=== PATIENT | male | born 1950 | race Caucasian/White ===

== ENCOUNTER 2017-06-26 16:01 | Emergency (ER) | payer OTHER, BC ==
[~2017-06-26] VITALS: Ht 170.2 cm; Wt 77.6 kg
[~2017-06-26 16:01] MED LIST: Adderall 20 MG20 MG PO; CEPH500 PO; CYCL10 PO; Clonazepam0.5 MG PO; DOXY100 PO; GLUCOSE; HYDACE5 PO; IBUHYD PO; LEVO750 PO; METR500 PO; NAPR500 PO; ONDA4ODT MM; OSEL75CA PO; OXYACE5T PO; PROM25 PO; TRAM50 PO; ZOLP10 PO; ZOLP5 PO; [UNRECOGNIZED DRUG - OTHER]
[2017-06-26] MEDS ORDERED: Roxicodone5 MG PO (17:11)
== END 2017-06-26 17:26 | disposition home or self-care (01) ==
LOC: ER 16:01
DX: S92.354A Nondisplaced fracture of fifth metatarsal bone, right foot, initial encounter for closed fracture (principal); Z88.0 Allergy status to penicillin; Z88.1 Allergy status to other antibiotic agents; Z79.899 Other long term (current) drug therapy; W23.0XXA Caught, crushed, jammed, or pinched between moving objects, initial encounter
CPT/HCPCS: 29515; 73630; 99283

== ENCOUNTER 2020-03-01 10:31 | Day surgery (SDC) | payer OTHER, BC ==
[~2020-03-01] VITALS: Ht 170.2 cm; Wt 78.0 kg
[~2020-03-01 10:31] MED LIST changes: +Roxicodone5 MG PO; +VICOPROFEN PO
--- NOTE | 2020-03-01 11:11 | NUR ---
03/01/20 1110 Donna Mendez CHARTED BY GABY BURCIAGA RN
== END 2020-03-01 13:25 | disposition home or self-care (01) ==
LOC: ORSCSDS 10:31
PROVIDERS: Orthopaedic Surgery
PROC: 01N50ZZ Release Median Nerve, Open Approach (ICD-10-PCS; principal; 2020-03-01 12:00)
DX: G56.02 Carpal tunnel syndrome, left upper limb (principal); I10 Essential (primary) hypertension
CPT/HCPCS: J2250; J2704; J3010; J3370; J7120

== ENCOUNTER 2021-11-16 08:34 | Day surgery (SDC) | payer OTHER, BC ==
[~2021-11-16] VITALS: Ht 170.2 cm; Wt 73.8 kg
[~2021-11-16 08:34] MED LIST changes: +AMPDEX15CR PO; +Acerola C500 MG PO; +GLUCHON PO; +TIZANIDINE HCL2 MG PO; +VITAMIN E400 UNIT PO; +Vitamin B Comple1 EA PO
--- NOTE | 2021-11-16 19:08 | NUR ---
SHIFT SUMMARY HAS DONE WELL POST OP. WAS NOT ABLE TO WORK w/ THERAPY DUE TO TIMING OF ARRIVAL TO UNIT. PAINFUL INITIALLY, BUT MUCH IMPROVED. EATING, DRINKING, & VOIDING. JOHN WRAP WNL. VSS.
[2021-11-17 05:35] LABS: BASOPHILS ABSOLUTE AUTO 0.03 K/mm3 (0.00-0.23); BASOPHILS PERCENT AUTO 0 % (0-2); EOSINOPHILS ABSOLUTE AUTO 0.02 K/mm3 (0.00-0.68); EOSINOPHILS PERCENT AUTO 0 % (0-6); Hemoglobin 10.7 g/dL (13.5-17.5); IMMATURE GRAN ABSOLUTE AUTO 0.04 K/mm3 (0.00-0.10); IMMATURE GRAN PERCENT AUTO 0 % (0-1); LYMPHOCYTES ABSOLUTE AUTO 1.22 K/mm3 (0.84-5.20); LYMPHOCYTES PERCENT AUTO 13 % (21-46); MONOCYTES ABSOLUTE AUTO 0.61 K/mm3 (0.16-1.47); MONOCYTES PERCENT AUTO 6 % (4-13); Mean Corpuscular HGB 28.8 pg (26.0-34.0); Mean Corpuscular HGB Conc 33.4 g/dL (31.5-36.5); Mean Corpuscular Volume 86 fL (80-100); Mean Platelet Volume 10.1 fL (9.1-12.4); NEUTROPHILS ABSOLUTE AUTO 7.56 K/mm3 (1.96-9.15); NEUTROPHILS PERCENT AUTO 80 % (41-73); Platelet Count 217 K/mm3 (150-400); RDW Coefficient Variation 12.9 % (11.7-14.2); RDW Standard Deviation 40.4 fL (35.1-46.3); Red Blood Cell Count 3.72 M/mm3 (4.30-5.90); White Blood Cell Count 9.48 K/mm3 (4.00-11.30)
[2021-11-17 06:00] LABS: Bun/Creatinine Ratio 24.5 (12.0-20.0); Calcium, Blood 8.5 mg/dL (8.5-10.1); Creatinine, Blood 0.82 mg/dL (0.60-1.20); Magnesium, Blood 1.9 mg/dL (1.6-2.4); Potassium, Blood 4.2 mmol/L (3.5-5.5)
--- NOTE | 2021-11-17 06:11 | NUR ---
SUMMARY PT PAIN MANAGED WELL. PT SLEPT WELL DURING SHIFT. PT EAGER TO GO HOME. PT AMBULATING WELL. NO ISSUES NOTED.
[2021-11-17] MEDS ORDERED: SULTRIDS PO (07:46)
[2021-11-17] MEDS ORDERED: ASPIR 8181 M1 PO (07:46)
--- NOTE | 2021-11-17 10:54 | NUR ---
0950 PATIENT CLEARED PHYSICAL THERAPY. AMBULATING WITH WALKER. XIMENA PO FOOD AND FLUIDS WITHOUT NAUSEA. PT VOIDING CLEAR YELLOW URINE, REPORTS PAIN ADEQUATELY CONTROLLED WITH PO MEDS. PT AND SPOUSE VERBALIZE UNDERSTANDING OF DISCHARGE INSTRUCTIONS. LEFT KNEE DRESSING DRY AND INTACT. PT DISCHARGED WITH AQUACEL DRESSINGS X3
== END 2021-11-17 09:45 | disposition home or self-care (01) ==
LOC: ORSCMMR 08:34 → ORD 13:15 → ORSCMMR 13:15 → SURS 14:32 → ORSCMMR 11-17 09:45
PROVIDERS: Orthopaedic Surgery
PROC: 8E0YXBZ Computer Assisted Procedure of Lower Extremity (ICD-10-PCS; principal; 2021-11-16 10:45)
PROC: 0SPD04Z Removal of Internal Fixation Device from Left Knee Joint, Open Approach (ICD-10-PCS; principal; 2021-11-16 10:45)
PROC: 0SRD0J9 Replacement of Left Knee Joint with Synthetic Substitute, Cemented, Open Approach (ICD-10-PCS; principal; 2021-11-16 10:45)
DX: M17.12 Unilateral primary osteoarthritis, left knee (principal); Z96.651 Presence of right artificial knee joint; Z47.2 Encounter for removal of internal fixation device; F98.8 Other specified behavioral and emotional disorders with onset usually occurring in childhood and adolescence; Z79.899 Other long term (current) drug therapy
CPT/HCPCS: 36415; 73560-LT; 80048; 83735; 85025; 97110; 97116; 97162; A9270; C1713; C1776; J0171; J0690; J0735; J1100; J1170; J1885; J2250; J2405; J2704; J2795; J3010; J3370; J7060; J7120

== ENCOUNTER 2022-09-29 19:26 | Emergency (ER) | payer OTHER, BC ==
[~2022-09-29] VITALS: Ht 170.2 cm; Wt 77.1 kg
[~2022-09-29 19:26] MED LIST changes: +ASPIR 8181 M1 PO; +SULTRIDS PO
[2022-09-29 19:38] VITALS: BP 148/68
== END 2022-09-29 20:10 | disposition home or self-care (01) ==
LOC: ER 19:26
DX: S61.042A Puncture wound with foreign body of left thumb without damage to nail, initial encounter (principal); W26.8XXA Contact with other sharp object(s), not elsewhere classified, initial encounter; W45.8XXA Other foreign body or object entering through skin, initial encounter; Z79.899 Other long term (current) drug therapy; Z79.82 Long term (current) use of aspirin
CPT/HCPCS: 99282